=== PATIENT | female | born 1990 | race Caucasian/White ===

== ENCOUNTER 2016-07-17 11:18 | Emergency (ER) | payer OTHER, MEDICAID ==
[2016-07-17] MEDS ORDERED: BUFFERED LIDOCAINE 10 ML SYRINGE ONE (12:19)
== END 2016-07-17 12:46 | disposition home or self-care (01) ==
DX: S61.210A Laceration without foreign body of right index finger without damage to nail, initial encounter (principal); W45.8XXA Other foreign body or object entering through skin, initial encounter

== ENCOUNTER 2016-08-07 13:08 | Emergency (ER) | payer MEDICAID ==
[2016-08-07] MEDS ORDERED: ACETAMINOPHEN 325 MG TABLET PO STA (15:00)
[2016-08-07] MEDS ORDERED: traMADol 50 MG TABLET PO STA (15:00)
[2016-08-07] MEDS ORDERED: DEXAMETHASONE 10 MG/ML VIAL PO STA (15:00)
[2016-08-07] MEDS ORDERED: CETIRIZINE 10 MG TABLET PO STA (15:00)
[2016-08-07] MEDS ORDERED: traMADol 50 MG TABLET PO ONE (15:08)
[2016-08-07] MEDS ORDERED: DEXAMETHASONE 10 MG/ML VIAL ONE (15:08)
[2016-08-07] MEDS ORDERED: CHERRY SYRUP 10 ML UDC PO ONE (15:08)
[2016-08-07] MEDS ORDERED: ACETAMINOPHEN 325 MG TABLET PO ONE (15:09)
[2016-08-07] MEDS ORDERED: CETIRIZINE 10 MG TABLET ONE (15:09)
== END 2016-08-07 15:45 | disposition home or self-care (01) ==
DX: J06.9 Acute upper respiratory infection, unspecified (principal)
CPT/HCPCS: 99283; A9270